=== PATIENT | male | born 1950 | race Caucasian/White ===

== ENCOUNTER 2017-01-27 03:19 | Emergency (ER) | payer MEDICARE ==
[~2017-01-27] VITALS: Ht 181.6 cm; Wt 109.1 kg
[2017-01-27 03:22] VITALS: BP 149/71; PULSE 83; RESP 16; O2SAT 96
[2017-01-27] MEDS ORDERED: LISI10TA PO (03:25)
[2017-01-27] MEDS ORDERED: METF500T4 PO (03:25)
--- NOTE | 2017-01-27 03:28 | ED.REPORT ---
HPI-Allergic Reaction Date of Service Jan 27, 2017 ED Provider: Wilfred Broderick MD Patient is a 66 year old male with a history of hypertension, hyperlipidemia, diabetes mellitus, and anaphylaxis who presents to the ED after he awoke with hives with morning. The rash is present all over his body. The patient is unsure what his allergic reaction is to. The patient had a homemade taco at home today for lunch and did not eat anything abnormal the rest of the day. Patient took Prednisone prior to arrival, but could not find his Benadryl. Patient denies difficulty breathing, wheezing, dysphagia, tongue swelling, or throat swelling. Patient has previously had anaphylactic reactions and used to carry an EpiPen. The patient last had a reaction like this 6 months ago but he is typically able to halt his symptoms prior to full anaphylactic reaction. Nursing Notes Stated Complaint: HIVES Chief Complaint: Allergic Reaction Nursing Notes Reviewed: Yes Allergies: Coded Allergies: No Known Allergies (Verified , 01/27/17) Scheduled Famotidine (Pepcid) 20 Mg Tablet 20 MG PO BID Lisinopril (Lisinopril) 10 Mg Tablet 10 MG PO DAILY Loratadine (Claritin) 10 Mg Capsule 10 MG PO DAILY Metformin (Metformin) 500 Mg Tablet 500 MG PO BID Prednisone (PredniSONE) 20 Mg Tablet 60 MG PO DAILY Scheduled PRN diphenhydrAMINE HCl (Benadryl) 25 Mg Capsule 50 MG PO Q4 PRN PRN For Itching General Time Seen by MD: 03:27 Chief Complaint Rash Hx Obtained From: Patient Arrived By: Walk-in Onset Occurred: 1 - 4 hours ago Symptom Duration: Since onset Recent Healthcare: No recent doctor visit, No recent hospitalization Similar Sx Previous: Yes Past Medical History Past Medical History septic shoulder anxiety anaphylaxis Reports: Diabetes mellitus, Hyperlipidemia, Hypertension Past Surgical History rotator cuff surgery right should arthroscopy Reports: Tonsillectomy Smoking History Unknown if Ever Smoker Social History Alcohol Use: "Social" Other Social History: Good social support, Local resident Ambulatory Status Independent Review of Systems Ears / Nose / Throat: Denies: Throat swelling, Tongue swelling Respiratory: Denies: Shortness of breath, Wheezing GI: Denies: Dysphagia Skin: Reports Rash Allergy / Immune: Reports: Allergic reaction, Hives Complete sys rev & neg: except as marked. Physical Exam Initial Vital Signs Vital Signs (First) Date Time Temp Pulse Resp B/P Pulse Ox O2 Delivery O2 Flow Rate FiO2 01/27/17 03:22 36.0 83 16 149/71 96 Room Air Initial VS: Reviewed Head / Eyes: Atraumatic, Normocephalic, PERRL ENT: Conjunctiva normal, No scleral icterus Neck: Supple, Full range of motion Abdomen / GI: Soft, Non-tender Extremities: Vascular intact, Neuro intact, No swelling Neurologic: Alert, Oriented, Nonfocal Psychiatric: Mood/affect normal, Behavior normal, Normal thought content General/Constitutional: Awake, Alert, No acute distress Respiratory / Chest: Breath sounds NL, Breath sounds = bilat, No respiratory distress, No rales, No rhonchi, No wheezing Cardiovascular: Heart rate NL, Regular rhythm, Heart sounds NL, No gallop, No murmurs, No rubs Skin: Warm, Dry Color / Condition: Positive: Rash present Rash / Lesion Location: Positive: Generalized Rash / Lesion Pattern: Positive: Urticarial (confluent hives all over the body) Interpretation & Diagnostics Lab Results Interpretation Test 01/27/17 03:33 Hold Purple Top Tube Received (Received) Hold Blue Top Tube Received (Received) Hold Red Top Tube Received (Received) Hold Roulette Top Tube Received (Received) Hold Nguyen Top Tube Received (Received) Re-Eval/Medical Decision Med Decision/Clinical Course 66-year-old with recurrent hives with no identified allergen. Discussed the various possibilities with him and family at some length. Proved here after IV Benadryl Pepcid and Decadron. Discharged home with Claritin, Pepcid, Benadryl when necessary, and three day course of 60 mg daily of prednisone. Follow up with PCP. Fairly infrequent bouts, probably not requiring additional investigation. Source of Hx: Old records Re-Evaluation/Progress : Time of Eval: 04:08 Patient Status: Condition improved Re-Evaluation/Progress Note: Rechecked the patient. He feels much improved and his symptoms have not progressed. Patient understands and agrees with the plan to be discharged home. Discharge instructions and follow-up discussed. All questions were addressed. Return to the ED warnings given. Counseled Regarding: Diagnosis, Need for follow-up, When/why to return to ED Discharge & Departure Primary Impression: Urticaria Disposition: Home Discharge Condition All VS Reviewed: Yes Condition: Stable Patient Instructions: Urticaria (ED) Additional Instructions: The source of this is often difficult to pin down. Common offenders include antibiotics in commercial meat and milk. One way to avoid this problem is to get your ground beef ground from a single piece of meat that you buy. The relay checker departments at [employer] and other local stores will do this for you. Many other foods and colorings and preservatives can be involved. Common offenders include nuts, berries, egg protein, milk protein, tomatoes, and many other items. Return promptly if any difficulty with swallowing breathing or speaking. Prednisone three tabs daily for three days Claritin daily for ten days Pepcid daily for ten days Referrals: Kit Gómez MD (PCP) Scribe Attestation Portions of this note were transcribed by Virgie Anand. I, Dr. Broderick personally performed the history, physical exam and medical decision-making; I reviewed and confirmed the accuracy of the information in the transcribed note. Signed by: Garcia Lino, 01/27/2017 0416 copies to: Kit Gómez MD, Christopher W MD Jan 27, 2017 03:27 Virgie Anand Jan 27, 2017 03:30
[2017-01-27] MEDS ORDERED: Dexamethasone Inj 10 MG in 0.9% Sodium Chloride-Pha MIX 50 ML IV ONE (03:30)
[2017-01-27] MEDS ORDERED: Famotidine Inj 20 MG in IV Premix 1 EACH IV ONE (03:30)
[2017-01-27] MEDS ORDERED: 0.9% Sodium Chloride 1,000 ML IV SCH (03:30)
[2017-01-27 04:10] VITALS: BP 120/62; PULSE 68; RESP 18; O2SAT 98
[2017-01-27] MEDS ORDERED: DIPH25CA6 PO (04:12)
[2017-01-27] MEDS ORDERED: LORA10CA PO (04:12)
[2017-01-27] MEDS ORDERED: FAMO20T PO (04:12)
[2017-01-27] MEDS ORDERED: PRE20 PO (04:12)
[2017-01-27 04:33] VITALS: BP 125/59; PULSE 66; RESP 14; O2SAT 98
== END 2017-01-27 04:34 | disposition home or self-care (01) ==
LOC: SED 03:19
DX: L50.9 Urticaria, unspecified (principal); I10 Essential (primary) hypertension; E78.5 Hyperlipidemia, unspecified; E11.9 Type 2 diabetes mellitus without complications; Z98.890 Other specified postprocedural states; Z79.84 Long term (current) use of oral hypoglycemic drugs; Z79.52 Long term (current) use of systemic steroids
CPT/HCPCS: 96361; 96372; 96374; 99284; J1100; J1200; J3490; J7030

== ENCOUNTER 2017-03-06 20:43 | Emergency (ER) | payer MEDICARE, OTHER ==
[~2017-03-06] VITALS: Ht 182.9 cm; Wt 109.1 kg
[~2017-03-06 20:43] MED LIST: DIPH25CA6 PO; FAMO20T PO; LISI10TA PO; LORA10CA PO; METF500T4 PO; PRE20 PO
[2017-03-06 20:52] VITALS: BP 137/62; PULSE 62; RESP 18; O2SAT 96
--- NOTE | 2017-03-06 20:56 | ED.REPORT ---
HPI-Back Pain 40 and Over Date of Service March 06, 2017 ED Provider: Tano Tejada MD Patient is a 66 year old male with a history of hypertension, hyperlipidemia, diabetes mellitus, and anaphylaxis who presents to the ED complaining of left leg pain that began 2 days ago. Patient was reportedly moving a wheelbarrow and injured his left leg. Associated symptoms include weakness and numbness/ tingling in the left leg. Patient visited a chiropractor who was unable to identify a cause of the pain. The pain is exacerbated by standing and relived when laying in a supine position. Patient took 10 mg of prednisone with little relief. He denies any pelvic discomfort, urinary retention, bowel/bladder incontinence, back pain, fever or chills. Patient previously ruptured a disc and reports similar pain today. Nursing Notes Stated Complaint: BACK INJURY Chief Complaint: Back Pain or Injury Nursing Notes Reviewed: Yes Allergies: Uncoded Allergies: UNKNOWN ANTIBIOTIC (Allergy, Unknown, 03/06/17) Scheduled Famotidine (Pepcid) 20 Mg Tablet 20 MG PO BID Lisinopril (Lisinopril) 10 Mg Tablet 10 MG PO DAILY Loratadine (Claritin) 10 Mg Capsule 10 MG PO DAILY Metformin (Metformin) 500 Mg Tablet 500 MG PO BID Prednisone (PredniSONE) 20 Mg Tablet 60 MG PO DAILY Prednisone (PredniSONE) 20 Mg Tablet 440 MG PO DAILY Scheduled PRN Cyclobenzaprine (Cyclobenzaprine) 10 Mg Tablet 10 MG PO HS PRN PRN Spasm diphenhydrAMINE HCl (Benadryl) 25 Mg Capsule 50 MG PO Q4 PRN PRN For Itching General Time Seen by MD: 20:55 Chief Complaint Other (Leg pain) Hx Obtained From: Patient Arrived By: Walk-in Sudden in Onset?: No Onset Occurred: 2 days ago Symptom Duration: Since onset Quality: Painful Radiation: : Does not radiate Severity: Current: Mild Severity: Maximum: Moderate Associated with: Reports: Numbness left low ext, Denies: Incontinence bladder, Incontinence bowel Pertinent Negative: Pt denies other symptoms Recent Healthcare: No recent doctor visit, No recent hospitalization Risk Factors )( AAA Risk Stratification Risk factors reviewed )( TAD Risk Stratification Risk factors reviewed Past Medical History Past Medical History Septic shoulder Anxiety Anaphylaxis Reports: Diabetes mellitus, Hyperlipidemia, Hypertension Past Surgical History rotator cuff surgery right should arthroscopy Reports: Tonsillectomy Smoking History Unknown if Ever Smoker Social History Alcohol Use: "Social" Other Social History: Good social support, Local resident Ambulatory Status Independent Review of Systems Constitutional: Denies: Chills, Fever Male: Denies Dysuria, Denies Incontinence, Denies Urinary frequency, Denies Urinary urgency, Denies Urination decreased, Denies Urination increased Musculoskeletal: Reports: Extremity pain (left leg pain), Denies: Back pain Neurologic: Reports: Numbness (left leg ), Denies: Weakness Complete sys rev & neg: except as marked. Physical Exam Initial Vital Signs Vital Signs (First) Date Time Temp Pulse Resp B/P Pulse Ox O2 Delivery O2 Flow Rate FiO2 03/06/17 20:52 36.6 62 18 137/62 96 Room Air Initial VS: Reviewed Head / Eyes: Atraumatic, Normocephalic, PERRL Neck: Supple, Non-tender, Full range of motion Skin: Warm, Dry, No cyanosis Psychiatric: Mood/affect normal, Behavior normal, Normal thought content General/Constitutional: Awake, Alert, No acute distress Respiratory / Chest: Atraumatic, Breath sounds NL, Breath sounds = bilat, No respiratory distress Cardiovascular: Heart rate NL, Regular rhythm, Heart sounds NL, No gallop, No murmurs, No rubs, Peripheral circulation NL, Pulses = bilaterally Abdomen: Atraumatic, Soft, Non-tender Back: Atraumatic, No midline vertebral tend, No paraspinal tenderness, No CVA tenderness Neurologic: Oriented X3, Speech NL, No motor deficits, No sensory deficits, CN II - XII intact, Reflexes equal bilat (in lower extremities) Lower Extremity / Pelvis / MS: Atraumatic, Inspection NL, Full range of motion , Neurologic intact (5/5 strength), Vascular intact LOWER EXTREMITIES: No saddle anaesthesia No patellar reflex abnormalities Upper Extremity / MS: Atraumatic, Neurologic intact (strength and sensation intact), Vascular intact Re-Eval/Medical Decision Med Decision/Clinical Course In summary, the patient is a 66-year-old male with history of type II diabetes who presents with low back pain intermittently radiating down his bilateral lower extremities all occurring in the setting of recent heavy lifting. Our primary and secondary assessment reveals an awake, alert patient in no acute distress. Hemodynamically stable and afebrile. Exam reveals normal neurologic exam of the lower extremities. Given this immunocompetent, afebrile, patient's history and exam, suspect muscle strain or spasm, the patient may also have disc herniation with peripheral nerve impingement given the sharp pain that he is intermittently having radiating down his legs. No concerning signs or symptoms suggestive of cauda equina, cord compression, epidural abscess or other neurologic emergency. History not suggestive of referred intraabdominal pathology or vascular emergency. There is no history of significant trauma, fever, incontinence, unexplained weight loss, cancer history, long-term steroid use or IV drug use. And given the patient's young age, I do not feel imaging is warranted at this time. Given the patient's workup, feel they are safe for discharge with conservative management. The patient was given Flexeril and Toradol here in the emergency department with good effect. He is advised to apply ice packs/hot packs. He will additionally do a 5 day course of prednisone. He is advised to use ibuprofen up to 600 mg 3 times a day but for no more than 1 week. He will discontinue for any GI symptoms, he has no history of kidney disease. Follow up with primary care physician to arrange for physical therapy and MRI if indicated given his clinical course. Have discussed with the patient results of workup, indications for return including: motor weakness in the lower extremities and/or bowel or bladder incontinence. Also emphasized the need for PCP follow up. They understand and agree with the plan. Re-Evaluation/Progress : Time of Eval: 21:50 Patient Status: Condition improved Re-Evaluation/Progress Note: Patient is informed of his results and diagnosis. All of the patient's questions are addressed. He understands and agrees with treatment plan. Counseled Regarding: Diagnosis, Need for follow-up, When/why to return to ED Discharge & Departure Impression: Primary Impression: Low back pain Chronicity: unspecified Back pain laterality: left Sciatica presence: with sciatica Sciatica laterality: sciatica of left side Qualified Code: M54.42 - Lumbago with sciatica, left side Additional Impression: Sciatic leg pain Disposition: Home Discharge Condition All VS Reviewed: Yes Condition: Improved Patient Instructions: Low Back Strain (ED), Sciatica (ED) Additional Instructions: Thank you for seeking care at the emergency room. It is difficult for us to make definitive diagnoses in the ED but we believe that you are experiencing sciatica. Our primary goal today in the ED was to evaluate you for any life-threatening conditions. Your evaluation was reassuring. You will be discharged with a prescription for 40 mg of prednisone. Please take up to 6 600 mg ibuprofen per day as needed for pain for the next 7 days. You should return to the ED immediately if you develop bowel/bladder incontinence, urinary retention, worsening pain, numbness, weakness or any other concerning signs or symptoms. Thank you for letting us partake in your care today. [facility] Address: [address] [place] [address] [address] Rueda, [place] [address] Referrals: Marisel Borja MD (PCP) Scribe Attestation Portions of this note were transcribed by Bailey Blandon. I, Dr. Tejada personally performed the history, physical exam and medical decision-making; I reviewed and confirmed the accuracy of the information in the transcribed note. Signed by: Garcia Martin, 03/06/17 2200. copies to: Marisel Borja MD, Beck O MD March 06, 2017 20:56 BAILEY BLANDON March 06, 2017 20:59
[2017-03-06] MEDS ORDERED: CYCL10TA9 PO (21:43)
[2017-03-06] MEDS ORDERED: PRE20 PO (21:43)
[2017-03-06] MEDS ORDERED: predniSONE 20 mg Tablet PO ONE (22:05)
[2017-03-06 23:56] VITALS: BP 134/80; PULSE 63; RESP 14; O2SAT 97
== END 2017-03-06 23:45 | disposition home or self-care (01) ==
LOC: SED 20:43
DX: M54.42 Lumbago with sciatica, left side (principal); E11.9 Type 2 diabetes mellitus without complications; I10 Essential (primary) hypertension; E78.5 Hyperlipidemia, unspecified; Z79.84 Long term (current) use of oral hypoglycemic drugs; Z79.899 Other long term (current) drug therapy
CPT/HCPCS: 96372; 99283; J1885